=== PATIENT | male | born 2000 | race Caucasian/White ===

== ENCOUNTER 2023-06-30 14:55 | Outpatient (REF) | payer OTHER, SELFPAY ==
--- NOTE | ~2023-06-30 | MR_ITS ---
EXAMINATION: MR ELBOW WITHOUT CONTRAST, RIGHT CLINICAL INFORMATION: Right elbow pain. COMPARISON: None available. TECHNIQUE: Multisequence MR imaging of the right elbow was obtained without contrast on a high-field strength scanner. FINDINGS: ULNAR COLLATERAL LIGAMENT: Intact. COMMON FLEXOR TENDON: Minimally increased T2 signal along the proximal myotendinous junction of the common flexor tendon which could represent normal variation versus a minimal strain. No measurable tear. RADIAL COLLATERAL LIGAMENT: Intact. COMMON EXTENSOR TENDON: Intact. BICEPS/TRICEPS TENDON: Intact distal biceps tendon. Minimally increased T2 signal along the brachialis myotendinous junction which could represent a minimal strain. Intact triceps tendon. ARTICULAR CARTILAGE/BONE: Intact articular cartilage. No osteochondral lesion. No acute fracture or dislocation. No concerning lytic or blastic osseous lesion. ULNAR NERVE: Intact. JOINT FLUID/SOFT TISSUES: Within normal limits. MR/MR elbow RT wo con IMPRESSION: 1. Minimally increased T2 signal along the proximal myotendinous junction of the common flexor tendon which could represent normal variation versus a minimal strain. No measurable tear. 2. Minimally increased T2 signal along the brachialis myotendinous junction which could represent a minimal strain.
== END 2023-06-30 14:56 | disposition home or self-care (01) ==
LOC: HO.MRI 14:55
PROVIDERS: Visit Provider Family Medicine
DX: M25.521 Pain in right elbow (principal)
CPT/HCPCS: 73221